=== PATIENT | male | born 1960 | race Asian ===

== ENCOUNTER 2020-10-26 05:39 | Day surgery (SDC) | payer OTHER ==
[2020-10-23 12:37] LABS: ALANINE AMINOTRANSFERASE 31 U/L (12-78); ALBUMIN 3.8 g/dL (3.4-5.0); ANION GAP 6 mmol/L (5-15); CALCIUM 8.3 mg/dL (8.5-10.1); CHLORIDE 112 mmol/L (98-107)
[2020-10-23 12:40] LABS: ALKALINE PHOSPHATASE 92 U/L (45-117); BILIRUBIN,TOTAL 0.4 mg/dL (0.2-1.0); CREATININE 0.97 mg/dL (0.7-1.3)
[2020-10-23 12:54] LABS: MICROSCOPIC AUTO
[~2020-10-26] VITALS: Ht 165.1 cm; Wt 78.9 kg
[~2020-10-26 05:39] MED LIST: FINA5TAB4 PO; LOSA1TAB22 PO; TAMS-11 PO
[2020-10-26] MEDS ORDERED: LACTATED RINGERS 1,000 ML IV SCH (06:30)
[2020-10-26] MEDS ORDERED: CHLORHEXIDINE 15 ML UDC PO ONE (06:30)
[2020-10-26] MEDS ORDERED: ROCURONIUM 10MG/ML,5ML ONE (06:35)
[2020-10-26] MEDS ORDERED: FENTANYL PF 250 MCG/5ML ONE (06:35)
[2020-10-26] MEDS ORDERED: PROPOFOL 10 MG/ML, 20ML ONE (06:35)
[2020-10-26] MEDS ORDERED: MIDAZOLAM 1 MG/ML, 2ML ONE (06:35)
[2020-10-26 06:37] VITALS: BP 112/84
[2020-10-26] MEDS ORDERED: DEXAMETHASONE 4 MG/ML, 1ML ONE (07:18)
[2020-10-26] MEDS ORDERED: HYDROmorphone 1 MG/ML, 1ML INJ IVPush PRN (07:30)
[2020-10-26] MEDS ORDERED: MEPERIDINE/PF 25MG/0.5ML IVPush PRN (07:30)
[2020-10-26] MEDS ORDERED: OXYcodone 5 MG/5 ML ORAL.SOL UDC PO PRN (07:30)
[2020-10-26] MEDS ORDERED: ONDANSETRON 2MG/ML, 2ML IVPush PRN (07:30)
[2020-10-26] MEDS ORDERED: hydrALAzine 20 MG/ML, 1ML IV PRN (07:30)
[2020-10-26] MEDS ORDERED: PROMETHAZINE 25 MG/ML, 1ML IVPush PRN (07:30)
[2020-10-26] MEDS ORDERED: FENTANYL PF 100 MCG/2ML IV PRN (07:30)
[2020-10-26] MEDS ORDERED: LABETALOL 5MG/ML, 20ML IV PRN (07:30)
[2020-10-26] MEDS ORDERED: ONDANSETRON 2MG/ML, 2ML ONE (07:51)
[2020-10-26] MEDS ORDERED: CEFOTETAN 1 GM ONE ×2 (07:52)
== END 2020-10-26 09:30 | disposition home or self-care (01) ==
LOC: OUT 05:39
PROVIDERS: ATTEND Colon & Rectal Surgery
DX: K62.1 Rectal polyp (principal); D37.5 Neoplasm of uncertain behavior of rectum; I10 Essential (primary) hypertension; Z20.822 Contact with and (suspected) exposure to COVID-19; Z79.899 Other long term (current) drug therapy; Z87.891 Personal history of nicotine dependence
CPT/HCPCS: 36415; 45172; 80053; 81001; 87077; 87086; 87184; 87186; 88307; J1100; J2250; J2405; J2704; J3010; J7120; U0003

== ENCOUNTER 2021-03-22 08:51 | Day surgery (SDC) | payer OTHER ==
[~2021-03-22] VITALS: Ht 165.1 cm; Wt 80.3 kg
[~2021-03-22 08:51] MED LIST changes: +ACETAMINOPHEN 325 MG TABLET PO PRN; +EPHEDRINE 50 MG/ML, 1ML IVPush PRN; +FENTANYL PF 100 MCG/2ML IV PRN; +LABETALOL 5MG/ML, 20ML IV PRN; +ONDANSETRON 2MG/ML, 2ML IVPush PRN; +PLEASE ENTER HEIGHT AND WEIGHT MC SCH; +PROMETHAZINE 25 MG/ML, 1ML IVPush PRN; +hydrALAzine 20 MG/ML, 1ML IV PRN
[2021-03-22] MEDS ORDERED: MULT-257 PO (09:20)
[2021-03-22 09:31] VITALS: BP 145/92
[2021-03-22] MEDS ORDERED: PROPOFOL 50 ML ONE (09:32)
[2021-03-22] MEDS ORDERED: CHLORHEXIDINE 15 ML UDC ONE (09:33)
[2021-03-22] MEDS ORDERED: CHLORHEXIDINE 15 ML UDC PO ONE (10:00)
[2021-03-22] MEDS ORDERED: LACTATED RINGERS 1,000 ML IV SCH (10:00)
== END 2021-03-22 11:25 | disposition home or self-care (01) ==
LOC: OUT 08:51
PROVIDERS: ATTEND Colon & Rectal Surgery
DX: K62.1 Rectal polyp (principal); I10 Essential (primary) hypertension; N40.0 Benign prostatic hyperplasia without lower urinary tract symptoms; Z79.899 Other long term (current) drug therapy; Z87.891 Personal history of nicotine dependence
CPT/HCPCS: 45331; 88305; J2704; J7120